=== PATIENT | male | born 1985 | race Caucasian/White ===

== ENCOUNTER 2021-11-18 12:35 | Emergency (ER) | payer OTHER ==
[~2021-11-18] VITALS: Ht 182.9 cm; Wt 85.3 kg
== END 2021-11-18 14:00 | disposition home or self-care (01) ==
LOC: ER 12:35
DX: S92.354A Nondisplaced fracture of fifth metatarsal bone, right foot, initial encounter for closed fracture (principal); X58.XXXA Exposure to other specified factors, initial encounter; Y93.9 Activity, unspecified; Y92.9 Unspecified place or not applicable; Y99.9 Unspecified external cause status

== ENCOUNTER 2023-06-24 19:55 | Emergency (ER) | payer OTHER ==
[~2023-06-24] VITALS: Ht 182.9 cm; Wt 95.3 kg
[2023-06-24] MEDS ORDERED: TETRACAINE HCL 20 DR/ML DROPS OP ONE (21:30)
[2023-06-24] MEDS ORDERED: ERYTHROMYCIN BASE 1 GM TUBE OP ONE (21:30)
== END 2023-06-24 22:19 | disposition home or self-care (01) ==
LOC: ER 19:56
DX: S05.02XA Injury of conjunctiva and corneal abrasion without foreign body, left eye, initial encounter (principal); W54.1XXA Struck by dog, initial encounter; Y93.89 Activity, other specified; Y92.89 Other specified places as the place of occurrence of the external cause